=== PATIENT | male | born 1980 | race Caucasian/White ===

== ENCOUNTER 2023-02-27 12:12 | Emergency (ER) | payer BC ==
[2023-02-27] MEDS ORDERED: Benzocaine 20% Topical Spray UD MUCMEM ONE (13:25)
[2023-02-27] MEDS ORDERED: Lidocaine 2% Viscous Solution 15 ML UD PO ONE (13:25)
[2023-02-27] MEDS ORDERED: Clindamycin HCl 150 MG Cap PO ONE (13:31)
[2023-02-27] MEDS ORDERED: Acetaminophen/HYDROcodone 325-5 MG Tab PO ONE (13:31)
== END 2023-02-27 13:49 | disposition home or self-care (01) ==
LOC: MW.ED 12:12
DX: K04.7 Periapical abscess without sinus (principal)
CPT/HCPCS: 99282; A9270; 99283